=== PATIENT | male | born 1990 | race Caucasian/White ===

== ENCOUNTER 2016-09-15 12:31 | Emergency (ER) | payer SELFPAY ==
[~2016-09-15 12:31] MED LIST: PRILOSEC20 MG PO; VEETIDS PO; ZOFRAN ODT4 MG/UDTAB PO; ZOFRAN4 M1 PO
[2016-09-15] MEDS ORDERED: NO HOME MEDICATION XX (13:04)
[2016-09-15 13:11] LABS: ANION GAP 13 mmol/L (0-20); BLOOD UREA NITROGEN 14 mg/dl (6-24); CALCIUM 9.1 mg/dl (8.5-10.5); CARBON DIOXIDE-VENOUS 25 mmol/L (22-32); CHLORIDE 108 mmol/l (96-110); GLUCOSE 96 mg/dL (70-110); POTASSIUM 3.9 mmol/L (3.7-5.1); SODIUM 142 mmol/L (135-145); eGFR VALUE FOR BLACK 89 mL/Min
== END 2016-09-15 14:53 ==
LOC: EDMED 12:31
PROVIDERS: Emergency Medicine
DX: T67.5XXA Heat exhaustion, unspecified, initial encounter (principal); K21.9 Gastro-esophageal reflux disease without esophagitis; Z87.442 Personal history of urinary calculi; F17.200 Nicotine dependence, unspecified, uncomplicated; X30.XXXA Exposure to excessive natural heat, initial encounter
CPT/HCPCS: J2405; J7030